=== PATIENT | female | born 1990 | race American Indian/Alaskan Native ===

== ENCOUNTER 2017-07-01 22:58 | Emergency (ER) | payer SELFPAY ==
[2017-07-01] MEDS ORDERED: TYLENOL ONE (23:12)
[2017-07-01 23:15] VITALS: BP 124/51
[2017-07-01] MEDS ORDERED: TYLENOL PO ONE (23:15)
[2017-07-02] MEDS ORDERED: FIORICET PO ONE (00:41)
--- NOTE | 2017-07-02 01:11 | Emergency Department Report ---
ED General Adult HPI - General Chief complaint: Head Injury Stated complaint: HEAD INJURY Time Seen by Provider: 07/02/17 00:26 Source: patient Mode of arrival: Ambulatory Limitations: No Limitations - History of Present Illness Initial comments: Patient states that she fell out of a car on Wednesday and has since had a headache. She describes a headache as throbbing and worse via bright lights, watching TV, using the phone. Patient describes the headache as pressure like and throbbing. Other associated symptoms includes nausea vomiting and decreased hearing in the right ear that has occurred over the last 48 hours -: Sudden Location: head Radiation: non-radiation Severity scale (0 -10): 7 Quality: aching, constant Consistency: constant Improves with: rest Worsens with: other (watching TV or bright lights) Associated Symptoms: confusion, other (decreased hearing in right ear) Treatments Prior to Arrival: none - Related Data Home Medications Medication Instructions Recorded Confirmed Last Taken ALBUTEROL NEB's [Proventil] 2.5 mg IH PRN 02/02/13 02/02/13 Unknown Previous Rx's Medication Instructions Recorded Last Taken Type Naproxen Sodium (Nf) [Anaprox DS] 550 mg PO BID PRN #14 tablet 02/02/13 Unknown Rx Nitrofurantoin [place]/M-Cryst 100 mg PO Q12HR #14 capsule 01/30/14 Unknown Rx [Macrobid] traMADol [Ultram] 50 mg PO Q6HR PRN #24 tablet 07/02/17 Unknown Rx Allergies Allergy/AdvReac Type Severity Reaction Status Date / Time No Known Allergies Allergy Verified 07/01/17 23:06 ED Review of Systems ROS: Stated complaint: HEAD INJURY Other details as noted in HPI Comment: All other systems reviewed and negative Constitutional: denies: chills, fever Eyes: denies: eye pain, eye discharge, vision change ENT: hearing loss. denies: ear pain, throat pain Respiratory: denies: cough, shortness of breath, wheezing Cardiovascular: denies: chest pain, palpitations Endocrine: no symptoms reported Gastrointestinal: denies: abdominal pain, nausea, diarrhea Genitourinary: denies: urgency, dysuria, discharge Musculoskeletal: denies: back pain, joint swelling, arthralgia Skin: denies: rash, lesions Neurological: denies: headache, weakness, paresthesias Psychiatric: denies: anxiety, depression Hematological/Lymphatic: denies: easy bleeding, easy bruising ED Past Medical Hx - Past Medical History Hx Asthma: Yes Additional medical history: Heart murmur - Social History Smoking Status: Current Every Day Smoker Substance Use Type: Alcohol, Marijuana - Medications Home Medications: Home Medications Medication Instructions Recorded Confirmed Last Taken Type ALBUTEROL NEB's [Proventil] 2.5 mg IH PRN 02/02/13 02/02/13 Unknown History Naproxen Sodium (Nf) [Anaprox DS] 550 mg PO BID PRN #14 tablet 02/02/13 Unknown Rx Nitrofurantoin [place]/M-Cryst 100 mg PO Q12HR #14 capsule 01/30/14 Unknown Rx [Macrobid] traMADol [Ultram] 50 mg PO Q6HR PRN #24 tablet 07/02/17 Unknown Rx ED Physical Exam - General Limitations: No Limitations General appearance: alert, in no apparent distress - Head Head exam: Present: atraumatic, normocephalic - Eye Eye exam: Present: normal appearance - ENT ENT exam: Present: mucous membranes moist - Neck Neck exam: Present: normal inspection - Respiratory Respiratory exam: Present: normal lung sounds bilaterally. Absent: respiratory distress - Cardiovascular Cardiovascular Exam: Present: regular rate, normal rhythm. Absent: systolic murmur, diastolic murmur, rubs, gallop - GI/Abdominal GI/Abdominal exam: Present: soft, normal bowel sounds - Extremities Exam Extremities exam: Present: normal inspection - Back Exam Back exam: Present: normal inspection - Neurological Exam Neurological exam: Present: alert, oriented X3, CN II-XII intact, motor sensory deficit, other (cranial nerves II through XII intact, no nystagmus, or palsies on exam) - Psychiatric Psychiatric exam: Present: normal affect, normal mood - Skin Skin exam: Present: warm, dry, intact, normal color. Absent: rash ED Course Vital Signs 07/01/17 23:06 Temperature 98.5 F Pulse Rate 75 Respiratory 18 Rate Blood Pressure 124/51 O2 Sat by Pulse 98 Oximetry ED Medical Decision Making - Medical Decision Making Discussed results with patient Discussed follow-up for further hearing testing Critical care attestation.: If time is entered above; I have spent that time in minutes in the direct care of this critically ill patient, excluding procedure time. ED Disposition Clinical Impression: Concussion, Hearing decreased Disposition: DC-01 TO HOME OR SELFCARE Is pt being admited?: No Does the pt Need Aspirin: No Condition: Stable Prescriptions: traMADol [Ultram] 50 mg PO Q6HR PRN #24 tablet PRN Reason: Pain Referrals: DEBI CRAIN MD [Primary Care Provider] - 3-5 Days
--- NOTE | 2017-07-02 01:18 | Cat Scan Report ---
FINAL REPORT EXAM: CT HEAD/BRAIN WO CON HISTORY: head injury 2 days ago COMPARISON: None available. TECHNIQUE: Axial images obtained skull base through vertex. FINDINGS: No acute intracranial hemorrhage, midline shift or pathologic extra axial fluid collection. Ventricles and cisterns are normal in size and configuration for the patient's age. Penn-white differentiation preserved. Calvarium grossly intact. Visualized ocular globes are grossly unremarkable. Mild mucosal thickening of the ethmoid air cells. Mastoid air cells are clear. Slight high attenuation pituitary gland which may relate to partial volume averaging with adjacent calvarium. IMPRESSION: No grossly acute intracranial abnormality.
== END 2017-07-02 01:56 | disposition home or self-care (01) ==
LOC: ED 22:58
DX: S06.0X0A Concussion without loss of consciousness, initial encounter (principal); H91.91 Unspecified hearing loss, right ear; J45.909 Unspecified asthma, uncomplicated; F17.200 Nicotine dependence, unspecified, uncomplicated; F12.10 Cannabis abuse, uncomplicated; V49.9XXA Car occupant (driver) (passenger) injured in unspecified traffic accident, initial encounter; Y93.89 Activity, other specified; Y99.8 Other external cause status; Y92.410 Unspecified street and highway as the place of occurrence of the external cause
CPT/HCPCS: 70450